=== PATIENT | female | born 1950 | race Caucasian/White ===

== ENCOUNTER → 2021-09-21 | Outpatient (CLI) | payer MEDICARE, OTHER | LOC: MRI 12:55 | DX: I69.30 Unspecified sequelae of cerebral infarction (principal); I67.9 Cerebrovascular disease, unspecified; R53.1 Weakness; I65.22 Occlusion and stenosis of left carotid artery; E04.1 Nontoxic single thyroid nodule | CPT/HCPCS: 70544; 70551; 93880 ==